=== PATIENT | female | born 1970 | race American Indian/Alaskan Native ===

== ENCOUNTER 2021-08-16 00:04 | Day surgery (SDC) | payer OTHER, SELFPAY ==
[2021-08-15 09:23] VITALS: BMI 28.3
--- NOTE | 2021-08-15 09:31 | PC.NURSE ---
Report to the Outpatient Waiting Room, entrance under the green pavilion located off [facility], at time 0630 on date 08/16/21. OR Time: 0830. - You and your visitor will be asked a series of questions to screen for COVID 19 for your protection. - Only one visitor is allowed at this time. - The patient visitor is requested to leave or wait in car when not with patient. - A mask is required within the hospital. Patients may have clear liquids (water, carbonated beverages, clear teas, apple juice) until 3 hours prior to surgery (0530) with a maximum of 20 ounces. - No food from midnight until time of surgery Take the following medications with a SIP of water the morning of surgery: SYNTHROID Medications to discontinue per physician: N/A Date to take last dose: N/A Please no make-up, nail vietnamese, hairspray, perfume, deodorant, or body powder the day of surgery. No jewelry (including any body piercings) or valuables the day of surgery, leave them at home. Please take a shower or bath the night before, or the morning of, surgery with an antibacterial soap. Wear comfortable, loose fitting clothing. - Jewelry must be removed prior to entering the operating room. Rings and piercings that are not removed may be cut off. - The hospital will not accept responsibility for valuables. - Please leave all valuables, including medications, at home the day of surgery. If you are going home after surgery, a licensed xm1 tank driver must drive you home. - NO public transportation without another adult. - We recommend that an adult stay with you for 24 hours following discharge. - We also recommend that you do not drive, make important decision, drink alcoholic beverages, or take any drugs that were not prescribed by your health care provider for at least 24 hours after your discharge time. Follow any additional instructions given to you from your surgeon. If you or anyone in your household have experienced Covid symptoms in the past week, please notify your surgeon or the nurse liaison at the phone number below for possible testing. Telephone instructions given to PT - IVETT Carter asked if any additional questions and then verbalized understanding. Patient advised to call surgeon office or pre surgery nurse liaison [phone] if any additional questions.
--- NOTE | 2021-08-15 13:51 | P.PNAN_ITS ---
Anes - Initial Pre Proc Eval Procedure: Operation Date: 08/16/21 08:30 Proposed Procedures p C4-5, C5-6 Anterior Cervical Discectomy Fusion - Linwood Velasco MD Date/Time: 08/15/21 13:51 Surgeon: Linwood Velasco MD Pre Op Diagnosis: cervical spondylosis, cervical stenosis Patient Data Age: 50 Gender: F Height: 1.6 m Weight: 72.57 kg Allergies Allergy/AdvReac Type Severity Reaction Status Date / Time No Known Allergies Allergy Verified 08/16/21 06:42 Home Medications Medication Instructions Recorded Confirmed Type levothyroxine 88 mcg tablet 88 mcg PO DAILY 08/15/21 08/16/21 History (Synthroid) metformin 500 mg tablet 500 mg PO BID 08/15/21 08/16/21 History montelukast 10 mg tablet 10 mg PO DAILY 08/15/21 08/16/21 History norethindrone (contraceptive) 0.35 1 tablet PO DAILY 08/15/21 08/16/21 History mg tablet (Bruna) phentermine 37.5 mg capsule 1 cap PO DAILY 08/15/21 08/16/21 History pitavastatin calcium 2 mg tablet 1 tablet PO HS 08/15/21 08/16/21 History (Livalo) Patient hx anesthesia problems: none Family hx anesthesia problems: none Results Review: All pre-operative results and documents have been reviewed as part of the pre- operative evaluation. [facility] Social History Social History Years smoked: 10 Smoking status: Current every day smoker Tobacco type: cigarettes Alcohol intake: current Drinks per week: 2 Substance use: never Substance use type: does not use Living arrangements: with family Spiritual care concerns: No Anes - Eval Final PreProcedure Day of Procedure 08/15/21 13:51 Patient weight: normal Heart: regular rate and rhythm Lungs: clear to auscultation Airway: Mallampati scale class II Neurological: alert and oriented Last oral intake: >/= 8 hours ASA classification: II Emergent: no Anesthetic plan: proceed Anesthesia type and monitoring: general ETT and standard monitoring Results Review: All pre-operative results and documents have been reviewed as part of the pre- operative evaluation. Informed Consent: The patient's anesthetic plan and its attendant risks and benefits were discussed with the patient/family/POA. Questions were solicited and answers provided to the satisfaction of the patient/family/POA.
[2021-08-16] VITALS (16 sets, daily range): BP systolic 118–165; BP diastolic 72–97; PULSE 55–109; RESP 16–20; TEMP 35.9–36.6; O2SAT 94–100
--- NOTE | ~2021-08-16 | XR_ITS ---
EXAMINATION: XR fluoroscopy no charge DATE: 08/16/2021 10:51 INDICATION: Anterior cervical discectomy and fusion TECHNIQUE: Single lateral fluoroscopic images of the cervical spine/neck was obtained during procedur e performed by Dr. Velasco. Radiologist was not present for the imaging or procedure. The amount of fluoroscopy time used during this procedure was 0.1 minutes. COMPARISON: None. FINDINGS: Endotracheal tube in expected position extending to at least in lower neck where it becomes obscured by underpenetration. Discectomies at C4-C5 and C5-C6 with associated anterior spinal fusion the cauda l which portion of which at level C6 is also obscured by underpenetration. Soft tissue retractors pro ject anterior to the neck. IMPRESSION: 1. Fluoroscopy utilized during anterior cervical discectomy and fusion. See procedure note for furthe r detail. Reviewed, dictated and finalized at location B. IMPRESSION: 1. Fluoroscopy utilized during anterior cervical discectomy and fusion. See pro cedure note for further detail.
--- NOTE | 2021-08-16 06:14 | ECG_ITS ---
Measurements Intervals [place] Rate: 53 P: 75 MO: 129 QRS: -10 QRSD: 90 T: 48 QT: 415 QTc: 391 Interpretive Statements SINUS BRADYCARDIA NONSPECIFIC T-WAVE ABNORMALITY- INFERIOR LEADS BASELINE ARTIFACT- I, II, AVR, AVL, V1-V3 BORDERLINE ECG Electronically Signed On 08-16-2021 8:00:16 CDT by Armani Chavarria D.O.
[2021-08-16] MEDS: LACTATED RINGERS 1,000 ML 30 ML IV CONT ×2 (07:34→11:02)
--- NOTE | 2021-08-16 08:46 | PM.IMHP ---
H&P: HPI History of Present Illness Date/Time: 08/16/21 08:46 Chief Complaint: Neck and arm pain Narrative: Ms. Kendrick is a 50-year-old female with neck and arm pain related to issues at C4-5 and C5-6 was auto fusion at C6-7 and presents now for anterior cervical diskectomy and fusion at C4-5 and C5-6. She has not changed since we saw her last. She has no specific muscle group weakness of either upper extremity. She is not having any bowel or bladder difficulty. Review of Systems Review of Systems: Negative on 12 systems except as noted above. She has stiffness, pain in her neck and upper extremity. [facility] Social History Social History Years smoked: 10 Smoking status: Current every day smoker Tobacco type: cigarettes Alcohol intake: current Drinks per week: 2 Substance use: never Substance use type: does not use Living arrangements: with family Spiritual care concerns: No Meds Home Medications and Allergies Home Medications Medication Instructions Recorded Confirmed Type levothyroxine 88 mcg tablet 88 mcg PO DAILY 08/15/21 08/16/21 History (Synthroid) metformin 500 mg tablet 500 mg PO BID 08/15/21 08/16/21 History montelukast 10 mg tablet 10 mg PO DAILY 08/15/21 08/16/21 History norethindrone (contraceptive) 0.35 1 tablet PO DAILY 08/15/21 08/16/21 History mg tablet (Bruna) phentermine 37.5 mg capsule 1 cap PO DAILY 08/15/21 08/16/21 History pitavastatin calcium 2 mg tablet 1 tablet PO HS 08/15/21 08/16/21 History (Livalo) Allergies Allergy/AdvReac Type Severity Reaction Status Date / Time No Known Allergies Allergy Verified 08/16/21 06:42 Vital Signs Vital Signs - 24 hr 08/16/21 07:30 Temperature 97.8 F Pulse Rate 75 Respiratory Rate 16 Blood Pressure 120/72 Pulse Oximetry 94 Oxygen Delivery Room Air Exam Neuro: Other: The patient is a normally developed female supine on the hospital bed in no acute distress. She is awake, alert, oriented x3 with good fund of knowledge, recall of events and fluent speech. Her face is symmetrical, her tongue is midline. Her pupils are equal and reactive. Her extraocular movements are intact. Strength is normal in all muscle groups of the bilateral upper extremities to direct confrontation. Sensation is intact to light touch throughout the upper extremities. Clear to auscultation. Regular rate and rhythm. Assessment and Plan Assessment and plan (1) Cervical spondylosis: Code(s): M47.812 - Spondylosis without myelopathy or radiculopathy, cervical region Status: Acute (2) Foraminal stenosis of cervical region: Code(s): M48.02 - Spinal stenosis, cervical region Status: Acute Plan Ms. Martinez is a 50-year-old female who presents for C4-5 and C5-6 anterior cervical diskectomy and fusion for spondylosis and foraminal stenosis. I again described to her that operation, its risks, potential benefits, the operative and postoperative course in detail and answered all the questions personally. She indicates understanding and elects to proceed with that operation.
--- NOTE | 2021-08-16 08:49 | WPDHPUPDATE1 ---
History and Physical Update Update Date/Time: 08/16/21 08:49 History and Physical has been reviewed, including an updated exam of the patient. There are NO changes in the patient's condition. Risks, benefits, and alternatives have been discussed and questions answered. Patient agrees to proceed with procedure.
[2021-08-16] MEDS: ceFAZolin 2 GM/D5W 50 ML 2 GM/50 ML BAG IVPB (08:54)
[2021-08-16] MEDS: LIDO 1%/EPINEPHRINE 1:100,000 10 ML VIAL INFILTRATE (09:23)
--- NOTE | 2021-08-16 10:50 | W.PM.PROC2 ---
Procedure Note - Detailed Date of Procedure 08/16/21 Pre-op Diagnosis cervical C4-5 and C5-6 spondylosis, herniated nucleus pulposus, foraminal stenosis Post-op Diagnosis Same Procedure Performed C4-5 and C5-6 anterior cervical diskectomy and fusion Surgeon Linwood Velasco MD Program Director/Air Personality Maite Andrews Ms. Martinez is a 50-year-old female with neck and arm pain related to the above pathology presents for decompression and fusion from an anterior approach. Findings Foraminal stenosis, herniated nucleus pulposus, spondylosis, anterior osteophytosis Description of Procedure Ms. Lopez was brought to the operating room in the supine position, was sedated, intubated and placed under general anesthesia in routine fashion. The area of operation on the right side of the neck was examined, marked for incision, prepped and draped in routine sterile fashion. Incision was marked from the midline over the medial aspect of the sternocleidomastoid muscle in curvilinear transverse fashion 3 fingerbreadths above the sternal notch. This area was injected with 0.5% lidocaine with [id number] epinephrine. Intravenous antibiotics were given prior to incision. Incision was made with a 10 blade scalpel down to the platysma muscle. The skin was undermined and the platysma muscle was divided longitudinally with its fibers using Metzenbaum scissors. A plane was then dissected medial to the sternocleidomastoid muscle down to the anterior aspect of the spine using the finger and Metzenbaum scissors. A verifying x-rays obtained to verify the level of operation. The longus colli muscle was dissected free the anterior aspect of the spine in a subperiosteal plane. A Shadow Line retractor system was placed. [employer] pins were placed in to see for and C6 and distraction placed over both disc spaces simultaneously. Diskectomy and arthrodesis procedures were performed identically at each level. This was done by entering the disc space using a 15 blade scalpel cutting along the margin of the bone above and below. The C4-5 level osteophytosis anteriorly was removed using a Leksell rongeur. Curved curette and pituitary rongeur were used to remove as much cartilaginous endplate and disc material down to the annulus and ligament posteriorly. A Midas Shukri drill was used to bur down the endplates to bleeding cortical flat surfaces as well as to begin a bony foraminotomy bilaterally. Under microscopy a 4-0 curved curette was used to come through the annulus and ligament. A 2. Kerrison punch was used to remove the annulus, ligament and posterior osteophyte until a bony foraminotomy was completed bilaterally. This was confirmed by placing a nerve hook out each foramen to confirm lack of compression. This was confirmed. Each disc space was sized an appropriately sized interbody device was chosen. These were peek interbody devices. An 8 mm device was chosen for C4-5 and a 6 mm device for C5-6. These were filled with a mixture of local autograft bone and I factor. They were then tamped into the disc space to a 1-2 mm countersink. Wax was used to cover the holes anteriorly on the plate to prevent escape of ice factor. An anterior cervical plate was chosen placed in position and secured using 6 14 x 4 mm anterior screws advancing the locking mechanism of the plate to hand tightness. The locking mechanism was engaged using a small screwdriver for that purpose. A verifying x-rays obtained to verify good position of the plate screws and interbody devices which was confirmed. The wound was then copiously irrigated with bacitracin irrigation all bleeding was stopped with bipolar and Bovie cautery and Gelfoam thrombin powder. The wound was then closed in layered fashion with 3-0 Vicryl interrupted sutures in the platysma muscle and in the dermis. The skin was closed with a running 4-0 Monocryl subcuticular stitch and dressed with Dermabond Telfa and Tegaderm dressing. The patient was then allowed
[2021-08-16] MEDS: fentaNYL CITRATE INJ (*CRX) 100 MCG/2 ML VIAL 25 MCG IV PUSH ×3 (11:33→11:43)
--- NOTE | 2021-08-16 12:49 | ADMGEN ---
This patient, Nydia Martinez, was admitted to 2 Medical Room 254-01. Patient/family oriented to hospital policies and general routines including ID bracelet, bed and alarms, visiting hours, pain management, procedures, bathroom and other care routines, personal items, smoking policy, room service/diet, and visiting hours. Information on how to activate the Rapid Response Team has been discussed. Patient/Family are encouraged to report perceived risks to care and to ask questions if they do not understand what they are told or what they should do. Report received from EMORY Siddiqui
[2021-08-16] MEDS: KCL 20 MEQ/D5/0.45% SOD CHL 1,000 ML 100 ML IV CONT ×2 (13:08→20:08)
[2021-08-16] MEDS: HYDROcodone/acetaminophen (*CRX) 10-325 MG TABLET 1 TAB PO ×2 (13:10→20:07)
[2021-08-16] MEDS: metFORMIN HCL 500 MG TABLET PO (16:11)
[2021-08-16] MEDS: MORPHINE SULFATE (*CRX) 2 MG/ML INJ IV PUSH ×2 (16:15→21:21)
[2021-08-16] MEDS: DOCUSATE SODIUM 100 MG CAPSULE PO (20:07)
[2021-08-16] MEDS: CYCLOBENZAPRINE HCL 10 MG TABLET PO (20:08)
[2021-08-17 02:14] VITALS: BP 105/63; PULSE 62; RESP 16; TEMP 36.4; O2SAT 97
[2021-08-17] MEDS: LEVOTHYROXINE SODIUM 88 MCG TABLET PO (05:13)
[2021-08-17] MEDS: HYDROcodone/acetaminophen (*CRX) 10-325 MG TABLET 1 TAB PO (05:13)
[2021-08-17] MEDS: CYCLOBENZAPRINE HCL 10 MG TABLET PO (05:13)
[2021-08-17 05:17] VITALS: BP 136/75; PULSE 56; RESP 12; TEMP 36.4; O2SAT 99
--- NOTE | 2021-08-17 08:01 | WPDPN ---
Progress Note: A&P Assessment and Plan (1) Cervical spondylosis: Code(s): M47.812 - Spondylosis without myelopathy or radiculopathy, cervical region Status: Acute Plan The patient is doing well and I believe it is ready for discharge later today. We reviewed her discharge instructions including wound care and use of her collar. She will return to see Dr. Velasco in approximately 6 weeks as she will have [employer] and Flexeril to take on an as-needed basis along with Tylenol. She will avoid nonsteroidal anti-inflammatory medications. Subjective Date/time seen: 08/17/21 08:01 The patient is postoperative day 1 from her 2 level anterior cervical diskectomy and fusion. She is doing very well. She has a sore throat but is eating well. She has been ambulating without difficulty. She has some neck discomfort but no pain or numbness or tingling in her arms or hands. She feels as though she has normal strength. She would like to go home later today. Exam Narrative: She is afebrile with normal vital signs. She is awake, alert, and cooperative. She has normal strength and sensation in her upper extremities. Her bandage is clean and dry. Objective Data Vital Signs Vital Signs: Vital Signs - 24 hr 08/16/21 11:02 08/16/21 11:15 08/16/21 11:25 Temperature 97.0 F L Pulse Rate 109 H 67 67 Respiratory Rate 16 20 20 Blood Pressure 118/82 119/86 140/97 H Pulse Oximetry 100 100 100 Oxygen Delivery Simple Face Mask Simple Face Mask Simple Face Mask Oxygen Flow Rate 8 8 8 08/16/21 11:30 08/16/21 11:40 08/16/21 11:55 Temperature Pulse Rate 81 57 L 56 L Respiratory Rate 16 18 16 Blood Pressure 149/88 H 152/79 H 143/90 H Pulse Oximetry 99 94 94 Oxygen Delivery Room Air Room Air Room Air Oxygen Flow Rate 08/16/21 12:05 08/16/21 12:15 08/16/21 12:20 Temperature 97 F L Pulse Rate 58 L 56 L 55 L Respiratory Rate 16 16 16 Blood Pressure 153/86 H 153/91 H 139/84 Pulse Oximetry 97 94 95 Oxygen Delivery Room Air Room Air Room Air Oxygen Flow Rate 08/16/21 13:01 08/16/21 12:35 08/16/21 12:50 Temperature 96.6 F L 96.8 F L Pulse Rate 57 L 57 L Respiratory Rate 16 18 Blood Pressure 150/85 H 150/92 H Pulse Oximetry 96 97 Oxygen Delivery Room Air Oxygen Flow Rate 08/16/21 13:20 08/16/21 14:20 08/16/21 17:56 Temperature 96.8 F L 96.9 F L 96.8 F L Pulse Rate 56 L 55 L 78 Respiratory Rate 16 16 16 Blood Pressure 165/91 H 143/89 H 133/86 Pulse Oximetry 96 98 98 Oxygen Delivery Oxygen Flow Rate 08/16/21 20:34 08/16/21 20:00 08/17/21 02:14 Temperature 97.7 F 97.6 F Pulse Rate 58 L 62 Respiratory Rate 16 16 Blood Pressure 135/77 105/63 Pulse Oximetry 98 97 Oxygen Delivery Room Air Oxygen Flow Rate 08/17/21 05:17 Temperature 97.6 F Pulse Rate 56 L Respiratory Rate 12 Blood Pressure 136/75 Pulse Oximetry 99 Oxygen Delivery Oxygen Flow Rate Intake/Output Intake/Output: Intake & Output 08/14/21 08/15/21 08/16/21 08/17/21 23:59 23:59 23:59 23:59 Intake Total 3080 650 Output Total 1600 2400 Balance 1480 -1750 Meds/Results Medications: Active Medications Generic Name Dose Route Start Last Admin Trade Name Freq PRN Reason Stop Dose Admin Hydrocodone Bitart/Acetaminophen 1 tab 08/16/21 12:24 Hydrocodone/Acetaminophen (*Crx) 5-325 Mg Tablet PO Q4H PRN Mild Pain (1-3) Hydrocodone Bitart/Acetaminophen 1 tab 08/16/21 12:24 08/17/21 05:13 Hydrocodone/Acetaminophen (*Crx) 10-325 Mg Tablet PO 1 tab Q4H PRN Administration Moderate Pain (4-6) Al Hydrox/Mg Hydrox/Simethicone 20 ml 08/16/21 12:24 Mag Hydrox/Al Hydrox/Simeth 30 Ml Udc PO Q4H PRN Indigestion/Heartburn Bisacodyl 10 mg 08/16/21 12:24 Bisacodyl 10 Mg Suppository RECTAL DAILY PRN Constipation Cyclobenzaprine HCl 10 mg 08/16/21 12:24 08/17/21 05:13 Cyclobenzaprine Hcl 10 Mg Tablet PO 10 mg TID PRN Adminis
[2021-08-17] MEDS: DOCUSATE SODIUM 100 MG CAPSULE PO (08:40)
[2021-08-17] MEDS: metFORMIN HCL 500 MG TABLET PO (08:40)
[2021-08-17] MEDS: MONTELUKAST SODIUM 10 MG TABLET PO (08:40)
--- NOTE | 2021-08-17 09:07 | WPDANESPN ---
Anes - Prog Note Post-Op Date/Time: 08/17/21 09:07 Vital Signs: Last Vital Signs Temp 36.4 C 08/17/21 05:17 Pulse 56 L 08/17/21 05:17 Resp 12 08/17/21 05:17 BP 136/75 08/17/21 05:17 Pulse Ox 99 08/17/21 05:17 O2 Del Method Room Air 08/16/21 20:00 O2 Flow Rate 8 08/16/21 11:25 Pain Score (VAS): 0 I/O: Intake & Output 08/16/21 08/17/21 08/17/21 23:59 07:59 15:59 Intake Total 1780 650 480 Output Total 600 2400 Balance 1180 -1750 480 Patient Feedback: Patient satisfied with anesthetic care.
[2021-08-17 09:50] VITALS: BP 119/74; PULSE 74; RESP 16; TEMP 36.4; O2SAT 97
== END 2021-08-17 12:31 | disposition home or self-care (01) ==
LOC: ANHSURGERY 06:30 → ANH2MED 12:26
PROVIDERS: PCP Family Medicine; Visit Provider Neurological Surgery
PROC: 0RB30ZZ Excision of Cervical Vertebral Disc, Open Approach (ICD-10-PCS; CPT 22551; principal; 2021-08-16 08:30)
DX: M47.812 Spondylosis without myelopathy or radiculopathy, cervical region (principal); M50.222 Other cervical disc displacement at C5-C6 level; M48.02 Spinal stenosis, cervical region; F17.210 Nicotine dependence, cigarettes, uncomplicated; Z79.84 Long term (current) use of oral hypoglycemic drugs
CPT/HCPCS: 22551; 22552; 22853 ×2; 20936; 36415; 86850; 86900; 86901; 93005; 99199; A9270; J0690; J1100; J2250; J2270; J2405; J2704; J2710; J3010; J3480; J7120

== ENCOUNTER 2022-01-23 08:03 | Outpatient (CLI) | payer OTHER, SELFPAY ==
--- NOTE | ~2022-01-23 | XR_ITS ---
Cervical Spine: AP, lateral, open-mouth views Clinical History: Pain Findings: Patient is status post anterior fusion from C4 through C6, anterior plate and screws, as we ll as associated disc fusion devices at the C4-C5 and C5-C6 disc spaces. Remaining disc spaces are re latively well-preserved. No acute fracture or subluxation. Pre-vertebral soft tissues are unremarkabl e. Impression: Anterior fusion from C4 through C6, as detailed above. Reviewed, dictated and finalized at location [] O HOST Impression: Anterior fusion from C4 through C6, as detailed above.
== END 2022-01-23 08:04 | disposition home or self-care (01) ==
PROVIDERS: PCP Family Medicine; Visit Provider Neurological Surgery
DX: M47.812 Spondylosis without myelopathy or radiculopathy, cervical region (principal); M48.02 Spinal stenosis, cervical region; Z98.890 Other specified postprocedural states; Z98.1 Arthrodesis status
CPT/HCPCS: 72040

== ENCOUNTER → 2022-09-13 10:13 | Outpatient (CLI) | payer OTHER, SELFPAY ==
--- NOTE | ~2022-09-13 | MM_ITS ---
EXAMINATION: MM screening pedro BI w shakeel HISTORY: Screening mammogram TECHNIQUE: Craniocaudal and mediolateral oblique 3-D tomosynthesis images were obtained and synthetic 2-D images were generated. CAD analysis was submitted and interpreted. COMPARISON: No prior mammogram is available for comparison at this institution. BREAST PARENCHYMAL COMPOSITION: There are scattered areas of fibroglandular density. FINDINGS: RIGHT BREAST: There is focal asymmetry in the middle third of the upper breast. LEFT BREAST: No suspicious mass, calcification, or architectural distortion are identified to suggest malignancy. IMPRESSION: 1. Right breast focal asymmetry which may represent the patient's baseline however no comparison is c urrently available. 2. Comparison with prior mammograms is necessary. BI-RADS Category 0: Incomplete: Needs comparison with prior mammograms. Reviewed, dictated and finalized at location A. IMPRESSION: 1. Right breast focal asymmetry which may represent the patient's baseline [place] no comparison is currently available. 2. Comparison with prior mammograms is necessary. BI-RADS Category 0: Incomplete: Needs comparison with prior mammograms.
== END ==
PROVIDERS: PCP Family Medicine Adolescent Medicine; Visit Provider Family Medicine Adolescent Medicine
DX: Z12.31 Encounter for screening mammogram for malignant neoplasm of breast (principal); R92.8 Other abnormal and inconclusive findings on diagnostic imaging of breast
CPT/HCPCS: 77063; 77067

== ENCOUNTER 2024-01-07 00:11 | Day surgery (SDC) | payer OTHER, SELFPAY ==
[2023-12-17 14:29] VITALS: BMI 27.8
[2024-01-07 08:42] VITALS: BP 126/81; PULSE 62; RESP 16; TEMP 36; O2SAT 96; BMI 28.2
[2024-01-07] MEDS: LACTATED RINGERS 1,000 ML 150 ML IV CONT (08:51)
--- NOTE | 2024-01-07 09:02 | P.PNAN_ITS ---
Anes - Initial Pre Proc Eval Procedure: Operation Date: 01/07/24 09:30 Proposed Procedures p Screening Colonoscopy - Eliazar Medel MD Date/Time: 01/07/24 09:02 Surgeon: Eliazar Medel MD Pre Op Diagnosis: neoplasm screening Patient Data Age: 53 Gender: F Height: 1.6 m Weight: 72.3 kg Last Vital Signs Temp 36.0 C L 01/07/24 08:42 Pulse 62 01/07/24 08:42 Resp 16 01/07/24 08:42 BP 126/81 01/07/24 08:42 Pulse Ox 96 01/07/24 08:42 O2 Del Method Room Air 01/07/24 08:42 Allergies Allergy/AdvReac Type Severity Reaction Status Date / Time No Known Allergies Allergy Verified 01/07/24 08:41 Home Medications Medication Instructions Recorded Confirmed Type Synthroid 75 mcg tablet 75 mcg PO DAILY #90 tabs 07/09/23 01/07/24 Rx (levothyroxine) sumatriptan succinate 50 mg tablet See Rx Instructions PO .COMPLEX 07/16/23 01/07/24 Rx #42 tabs pitavastatin calcium 2 mg tablet 2 mg PO HS #90 tabs 09/16/23 01/07/24 Rx (Livalo) tirzepatide (weight loss) 12.5 See Rx Instructions .Route 11/05/23 01/07/24 Rx mg/0.5 mL subcutaneous pen .COMPLEX #2 mL injector (Zepbound) metformin 500 mg tablet 500 mg PO BID #180 tabs 11/26/23 01/07/24 Rx Patient hx anesthesia problems: none Family hx anesthesia problems: none Results Review: All pre-operative results and documents have been reviewed as part of the pre- operative evaluation. [facility] Past Medical History Medical History Asthma Cervical spondylosis Foraminal stenosis of cervical region High cholesterol Hypothyroidism Surgical History Surgical History History of fusion of cervical spine (08/2021) History of tonsillectomy (~2004) Family History Family History Father Asthma Graves disease Mother Alcoholism Other Breast cancer Other Dementia Social History Social History Social History: quit smoking more than 15 years ago Years smoked: 10 Smoking status: Former smoker Tobacco type: cigarettes Additional smoking assessment comments: smoked cigarettes socially Alcohol intake: current Drinks per week: 2 Alcohol use details: a few a month Substance use: never Substance use type: does not use Do You Feel Safe in your Home?: Yes Lack of Transportation: No Lack of Food: Never True Current Housing: I Have Housing Concerned About Future Housing: No Difficulty Paying Gas/Electric Bills: No Difficulty Paying for Meds: No Currently Unemployed: No Education: Master's Degree or Higher Difficulty w/ Childcare or Family Care: No Living arrangements: with family Spiritual care concerns: No Anes - Eval Final PreProcedure Day of Procedure 01/07/24 09:02 Patient weight: overweight Heart: regular rate and rhythm Lungs: decreased breath sounds Airway: Mallampati scale class II Neurological: alert and oriented Last oral intake: >/= 8 hours ASA classification: III Emergent: no Anesthetic plan: proceed Anesthesia type and monitoring: general GIVS and standard monitoring Results Review: All pre-operative results and documents have been reviewed as part of the pre- operative evaluation. Informed Consent: The patient's anesthetic plan and its attendant risks and benefits were discussed with the patient/family/POA. Questions were solicited and answers provided to the satisfaction of the patient/family/POA.
[2024-01-07 09:28] VITALS: BP 109/65; PULSE 75; RESP 19; O2SAT 98
[2024-01-07 09:38] VITALS: BP 120/77; PULSE 70; RESP 22; O2SAT 100
[2024-01-07 09:48] VITALS: BP 136/80; PULSE 69; RESP 21; O2SAT 100
--- NOTE | 2024-01-11 08:00 | PM.HPGS ---
History of Present Illness History of Present Illness Consent: Risks, benefits, and alternatives have been discussed and questions answered. Patient agrees to proceed with procedure. Chief complaint: neoplasm screening Narrative: Nydia Martinez is a 53 year old female for screening colonoscopy Review of Systems Review of Systems: All systems reviewed & are unremarkable except as noted in HPI and below PMFSH Past Medical History Medical History Asthma Cervical spondylosis Foraminal stenosis of cervical region High cholesterol Hypothyroidism Surgical History Surgical History History of fusion of cervical spine (08/2021) History of tonsillectomy (~2004) Family History Family History Father Asthma Graves disease Mother Alcoholism Other Breast cancer Other Dementia Social History Social History Social History: quit smoking more than 15 years ago Years smoked: 10 Smoking status: Former smoker Tobacco type: cigarettes Additional smoking assessment comments: smoked cigarettes socially Alcohol intake: current Drinks per week: 2 Alcohol use details: a few a month Substance use: never Substance use type: does not use Do You Feel Safe in your Home?: Yes Lack of Transportation: No Lack of Food: Never True Current Housing: I Have Housing Concerned About Future Housing: No Difficulty Paying Gas/Electric Bills: No Difficulty Paying for Meds: No Currently Unemployed: No Education: Master's Degree or Higher Difficulty w/ Childcare or Family Care: No Living arrangements: with family Spiritual care concerns: No Meds Home Medications and Allergies Home Medications Medication Instructions Recorded Confirmed Type Synthroid 75 mcg tablet 75 mcg PO DAILY #90 tabs 07/09/23 01/07/24 Rx (levothyroxine) sumatriptan succinate 50 mg tablet See Rx Instructions PO .COMPLEX 07/16/23 01/07/24 Rx #42 tabs pitavastatin calcium 2 mg tablet 2 mg PO HS #90 tabs 09/16/23 01/07/24 Rx (Livalo) tirzepatide (weight loss) 12.5 See Rx Instructions .Route 11/05/23 01/07/24 Rx mg/0.5 mL subcutaneous pen .COMPLEX #2 mL injector (Zepbound) metformin 500 mg tablet 500 mg PO BID #180 tabs 11/26/23 01/07/24 Rx Allergies Allergy/AdvReac Type Severity Reaction Status Date / Time No Known Allergies Allergy Verified 01/07/24 08:41 Exam Const: General: comfortable and no acute distress HENMT: Face/Nose/Sinus: Normal nares present Eyes: General: appearance normal, both eyes and all related structures Neck: Neck: no JVD Resp: Auscultation: clear to auscultation bilaterally Cardio: Rate: regular rate Rhythm: regular rhythm GI: Inspection: non-distended GI Palp: Yes Soft to palpation Skin: General skin exam: normal color Neuro: General: gait normal Speech: normal speech Extrem: General: normal to inspection Psych: Mental Status: mental status grossly normal Assessment and Plan Assessment and plan (1) Colon cancer screening: Code(s): Z12.11 - Encounter for screening for malignant neoplasm of colon Status: Acute Assessment and Plan: colonoscopy
== END 2024-01-07 09:58 | disposition home or self-care (01) ==
PROVIDERS: PCP Family Medicine Adolescent Medicine; Referring Provider Nurse Practitioner Family; Visit Provider Internal Medicine Gastroenterology
PROC: 0DJD8ZZ Inspection of Lower Intestinal Tract, Via Natural or Artificial Opening Endoscopic (ICD-10-PCS; CPT 45378; principal; 2024-01-07 09:30)
DX: Z12.11 Encounter for screening for malignant neoplasm of colon (principal); E78.00 Pure hypercholesterolemia, unspecified; E03.9 Hypothyroidism, unspecified; Z79.85 Long-term (current) use of injectable non-insulin antidiabetic drugs; Z79.84 Long term (current) use of oral hypoglycemic drugs
CPT/HCPCS: 45378; J2003; J2704; J7120